=== PATIENT | male | born 1975 | race Caucasian/White ===

== ENCOUNTER → 2019-11-15 11:40 | Outpatient (BNVA) | payer OTHER, SELFPAY | PROVIDERS: Visit Provider Nurse Practitioner Family | DX: K50.119 Crohn's disease of large intestine with unspecified complications (principal) | CPT/HCPCS: 80053; 85025; 86140 ==

== ENCOUNTER → 2020-07-09 10:14 | Outpatient (BNVA) | payer OTHER, SELFPAY | PROVIDERS: Visit Provider Nurse Practitioner Family | DX: K50.811 Crohn's disease of both small and large intestine with rectal bleeding (principal) | CPT/HCPCS: 80053; 85025; 86140; 86480 ==

== ENCOUNTER → 2020-10-21 11:41 | Outpatient (BNVA) | payer OTHER, SELFPAY | PROVIDERS: Visit Provider Internal Medicine Gastroenterology | DX: K50.90 Crohn's disease, unspecified, without complications (principal) | CPT/HCPCS: 36415; 85025 ==

== ENCOUNTER → 2020-12-17 11:58 | Outpatient (BNVA) | payer OTHER, SELFPAY | PROVIDERS: Visit Provider Nurse Practitioner Family | DX: K50.90 Crohn's disease, unspecified, without complications (principal) | CPT/HCPCS: 80053; 86140 ==